=== PATIENT | female | born 1995 | race Caucasian/White ===

== ENCOUNTER 2018-04-12 14:57 | Emergency (ER) | payer MEDICAID ==
[~2018-04-12] VITALS: Ht 160 cm; Wt 65.3 kg
[2018-04-12 15:01] VITALS: Ht 160 cm; Wt 65.3 kg
[2018-04-12 17:52] LABS: BASOPHIL % 0.3 % (0-2); PLATELET COUNT 311 x10^3mcL (130-400)
[2018-04-12 17:54] LABS: RED CELL DISTRIBUTION WIDTH 16.1 % (11.5-14.5)
[2018-04-12 17:55] LABS: CALCIUM 9.7 mg/dL (8.5-10.1); CARBON DIOXIDE 28.8 mmol/L (21-32); CHLORIDE SERUM 104 mmol/L (98-107); CREATININE SERUM 0.8 mg/dL (0.6-1.0); GFR1 > 60 mL/min; GLUCOSE SERUM 86 mg/dL (74-106); POTASSIUM SERUM 3.7 mmol/L (3.5-5.1); SODIUM SERUM 141 mmol/L (136-145)
[2018-04-12 19:13] VITALS: BP 132/88
== END 2018-04-12 19:13 | disposition home or self-care (01) ==
LOC: ED 14:57
PROVIDERS: Emergency Medicine
DX: R00.2 Palpitations (principal); R07.89 Other chest pain; F41.9 Anxiety disorder, unspecified
CPT/HCPCS: 36415; 85378; Q0092

== ENCOUNTER 2018-04-28 00:50 | Emergency (ER) | payer MEDICAID ==
[~2018-04-28] VITALS: Ht 157.5 cm; Wt 65.3 kg
[2018-04-28 01:15] VITALS: Ht 157.5 cm; Wt 65.3 kg
[2018-04-28 03:12] VITALS: BP 130/88
[2018-04-28 03:21] LABS: microscopic required? YES; urine erythrocyte 2+ (NEGATIVE)
== END 2018-04-28 03:12 | disposition home or self-care (01) ==
LOC: ED 00:50
PROVIDERS: Emergency Medicine
DX: N12 Tubulo-interstitial nephritis, not specified as acute or chronic (principal)
CPT/HCPCS: J0696; J1885; Q0162

== ENCOUNTER 2019-05-28 11:40 | Emergency (ER) | payer OTHER ==
[~2019-05-28] VITALS: Ht 157.5 cm; Wt 66.7 kg
[2019-05-28 12:13] VITALS: Ht 157.5 cm; Wt 66.7 kg
[2019-05-28 13:14] LABS: BASOPHIL % 1.4 % (0-2); PLATELET COUNT 328 x10^3mcL (130-400)
[2019-05-28 13:25] LABS: RED CELL DISTRIBUTION WIDTH 15.6 % (11.5-14.5)
[2019-05-28 14:33] VITALS: BP 131/74
== END 2019-05-28 14:33 | disposition home or self-care (01) ==
LOC: ED 11:40
DX: N93.8 Other specified abnormal uterine and vaginal bleeding (principal)
CPT/HCPCS: 36415

== ENCOUNTER 2020-06-01 15:00 | Emergency (ER) | payer OTHER ==
[~2020-06-01] VITALS: Ht 160 cm; Wt 74.4 kg
[2020-06-01 15:08] VITALS: BP 114/76; Ht 160 cm; Wt 74.4 kg
== END 2020-06-01 15:47 | disposition home or self-care (01) ==
LOC: ED 15:00
DX: L25.9 Unspecified contact dermatitis, unspecified cause (principal)